=== PATIENT | female | born 1980 | race Caucasian/White ===

== ENCOUNTER 2017-03-04 17:12 | Emergency (ER) | payer OTHER ==
[2017-03-04 17:17] VITALS: BP 129/86; PULSE 101; RESP 20; TEMP 98.1
--- NOTE | 2017-03-04 17:52 | ED ---
Female Urogenital HPI - General Chief complaint: Urogenital Stated complaint: Vaginal problems Time Seen by Provider: 03/04/17 17:32 Source: patient, RN notes reviewed Mode of arrival: ambulatory Limitations: no limitations - History of Present Illness Initial comments: 37-year-old female presents to the emergency department with a chief complaint of boil to the vaginal area. Patient states it started about 2 days ago. Patient denies any drainage or discharge from the area. Patient denies any history of this. Patient denies any changes in personal care. Patient states she was concerned due to the pain and swelling so she thought that she should be evaluated.Patient denies any recent fever, chills, shortness of breath, chest pain, back pain, abdominal pain, nausea vomiting, numbness or tingling, dysuria or hematuria, constipation or diarrhea, headaches or visual changes, or any other current symptoms. - Related Data Home Medications Medication Instructions Recorded Confirmed Cyclobenzaprine [Flexeril] 10 mg PO HS 09/07/16 09/07/16 SUMAtriptan SUCCINATE [Imitrex] 100 mg PO DAILY PRN 09/07/16 09/07/16 Topiramate [Trokendi Xr] 100 mg PO DAILY 09/07/16 09/07/16 Previous Rx's Medication Instructions Recorded Sulfamethox-Tmp 800-160Mg [Bactrim 2 each PO Q12HR #56 tab 03/04/17 DS 800-160 mg] Allergies Allergy/AdvReac Type Severity Reaction Status Date / Time No Known Allergies Allergy Verified 03/04/17 17:17 Review of Systems ROS Statement: Those systems with pertinent positive or pertinent negative responses have been documented in the HPI. ROS Other: All systems not noted in ROS Statement are negative. Past Medical History Additional Past Medical History / Comment(s): migraines History of Any Multi-Drug Resistant Organisms: None Reported Past Surgical History: Back Surgery Additional Past Surgical History / Comment(s): fusion l4 l5 Past Anesthesia/Blood Transfusion Reactions: No Reported Reaction Past Psychological History: No Psychological Hx Reported Smoking Status: Never smoker Past Alcohol Use History: None Reported Past Drug Use History: None Reported General Exam Limitations: no limitations General appearance: alert, in no apparent distress Neck exam: Present: normal inspection. Absent: tenderness, meningismus, lymphadenopathy Respiratory exam: Present: normal lung sounds bilaterally. Absent: respiratory distress, wheezes, rales, rhonchi, stridor Cardiovascular Exam: Present: regular rate, normal rhythm, normal heart sounds. Absent: systolic murmur, diastolic murmur, rubs, gallop, clicks External exam: Present: erythema, swelling, lesions (To the right labia what appears to be an abscess) Extremities exam: Present: normal inspection, full ROM, normal capillary refill. Absent: tenderness, pedal edema, joint swelling, calf tenderness Neurological exam: Present: alert, oriented X3 Skin exam: Present: warm, dry, intact, normal color. Absent: rash Course Vital Signs 03/04/17 17:14 Temperature 98.1 F Pulse Rate 101 H Respiratory 20 Rate Blood Pressure 129/86 O2 Sat by Pulse 100 Oximetry Procedures - Procedures Initial comment: Procedure: Incision and drainage The skin overlying the abscess was prepped with Betadine, and anesthetized with 1% lidocaine without epinephrine. A #11 scalpel was then used to incise the abscess. Some purulent material was then extracted from the lesion. Gauze dressing placed on top, The patient tolerated the procedure well. Medical Decision Making - Medical Decision Making 29-year-old male presents for what appears to be a labial abscess. At this time we discussed care we discussed was on antibiotics. We discussed return parameters and follow-up. We discussed outpatient family's questions. He see the understanding and agreed with plan. All questions have been answered. They will be discharged. Disposition Clinical Impression: Abscess of right genital labia Disposition: HOME SELF-CARE Condition: Stable Instructions: Abscess (ED) Additional Instructions: Please use medication as discussed. Please follow up with family doctor if symptoms have not improved over the next two days. Please return to the emergency room if your symptoms increase or worsen or for any other concerns. Prescriptions: Sulfamethox-Tmp 800-160Mg [Bactrim DS 800-160 mg] 2 each PO Q12HR #56 tab Referrals: Richard Trujillo MD [Primary Care Provider] - 1-2 days Time of Disposition: 17:51
== END 2017-03-04 17:56 | disposition home or self-care (01) ==
LOC: EC 17:12
DX: N76.4 Abscess of vulva (principal); Z79.899 Other long term (current) drug therapy; Z86.69 Personal history of other diseases of the nervous system and sense organs
CPT/HCPCS: 56405; 99282

== ENCOUNTER 2017-09-20 07:30 | Day surgery (SDC) | payer OTHER ==
[2017-09-13 11:07] VITALS: BMI 41.5
--- NOTE | 2017-09-14 15:52 | HP ---
HISTORY AND PHYSICAL DATE OF PROCEDURE: 09/20/2016. HISTORY: This is a 37-year-old 0 woman with a longstanding history of dysmenorrhea and dysfunctional uterine bleeding. She has failed medical management with oral contraceptive pills and Depo-Provera. She has therefore elected to undergo diagnostic hysteroscopy and NovaSure endometrial ablation. Endometrial biopsy shows benign pathology. ALLERGIES: None. MEDICATIONS: Depo-Provera 150 mg q.3 months, Imitrex p.r.n. PAST MEDICAL HISTORY: Dysmenorrhea, dysfunctional uterine bleeding, obesity, migraine headaches, asthma. PAST SURGICAL HISTORY: L4-5 diskectomy and laminectomy in 1998. [employer] PAST HISTORY: She is a 0. No history of abnormal Pap smears or STDs. SOCIAL HISTORY: She is single, negative for tobacco, alcohol, and drug use. FAMILY HISTORY: Significant for mother with endometriosis. Father with hypercholesterolemia. REVIEW OF SYSTEMS: Negative for weight gain, weight loss, fevers, chills, nausea, vomiting, abdominal pain. Positive for painful periods, irregular vaginal bleeding, migraine headaches. PHYSICAL EXAM: Blood pressure 110/90, height 5 feet 7 inches, weight 248 pounds. In general, this is a pleasant, obese female in no obvious distress. HEENT exam is unremarkable with no palpable lymphadenopathy or thyromegaly. The abdomen is soft and nontender with no rebound, no guarding and no flank pain. Lungs are clear to auscultation bilaterally and heart is a regular rate and rhythm. On pelvic exam, she has normal female external genitalia without lesions or irritation. On speculum examination, the cervix appears grossly normal. Uterus is small, freely mobile and in the midline and there are no adnexal abnormalities appreciated. ASSESSMENT: This is a 37-year-old 0 woman with a history of dysmenorrhea and dysfunctional uterine bleeding who has failed medical management. She is scheduled to undergo diagnostic hysteroscopy with NovaSure endometrial ablation on 09/20/2017. This procedure, anticipated hospital course, and recovery have been reviewed with the patient in detail. Risks include, but are not limited to bleeding, transfusion, infection, uterine perforation with damage to internal structures, anesthesia complications. The patient understands these risks and agrees to proceed. MMODL / IJN: [id number] /
[~2017-09-20 07:30] MED LIST: DEXAMETHASONE SOD PHOSPHATE 10 MG/ML 1 ML VIAL IV ONE; HYDROmorphone 0.5 MG/0.5 ML SYRINGE IVP PRN; LACTATED RINGERS 1,000 ML IV ONE; LIDOCAINE 1% 20 ML VIAL (10MG/ML) FOR IV START INTRADERMA PRN; ONDANSETRON 4 MG/2 ML VIAL IVP ONE; Pre Op ABX Message 1 EACH MISC MISCELLANE ONE; SCOPOLAMINE 1.5MG/72HR PATCH TRANSDERM ONE
[2017-09-20] MEDS ORDERED: LIDOCAINE 1% 20 ML VIAL (10MG/ML) FOR IV START INTRADERMA ONE (08:05)
[2017-09-20] MEDS ORDERED: PROPOFOL 10 MG/ML 20 ML VIAL IV ONE (08:29)
[2017-09-20] MEDS ORDERED: SUCCINYLCHOLINE CHLORIDE VIAL 200 MG/10 ML VIAL IV ONE (08:29)
[2017-09-20] MEDS ORDERED: KETOROLAC 30 MG/ML 1 ML VIAL ONE (08:29)
[2017-09-20] MEDS ORDERED: LIDOCAINE 1% INJ 10MG/ML (20 ML MDV) ONE (08:29)
[2017-09-20] MEDS ORDERED: fentaNYL (PF) 50 MCG/ML 2 ML AMP ONE (08:29)
[2017-09-20] MEDS ORDERED: MIDAZOLAM 2 MG/2 ML VIAL ONE (08:29)
[2017-09-20] MEDS ORDERED: BUPIVACAINE-EPI 0.5%-1:200,000 10 ML VIAL SQ ONE (08:42)
--- NOTE | 2017-09-20 08:58 | P.OP ---
Date of Procedure: 09/20/17 Preoperative Diagnosis: Dysfunctional uterine bleeding Dysmenorrhea Postoperative Diagnosis: Same Procedure(s) Performed: Diagnostic hysteroscopy and NovaSure endometrial ablation Anesthesia: OLENA Surgeon: Zuleika Max Estimated Blood Loss (ml): 5 IV fluids (ml): 500 Urine output (ml): 50 Pathology: none sent Condition: stable Disposition: PACU Operative Findings: Enlarged uterus with fluffy endometrium Description of Procedure: After the patient was met in the preoperative holding area and all questions were answered, she was taken to the operating room where anesthetic was administered without incident. She was then positioned, prepped and draped in the dorsal lithotomy position. Bladder was drained for approximately 50 mL of clear urine. Single-sided speculum was placed in the vagina and the cervix was grasped anteriorly with a single-tooth tenaculum. Paracervical block with lidocaine plus epinephrine was placed. The uterus was sounded to 11.0 cm. The cervix was then sequentially dilated with Hegar dilators to allow for passage of the diagnostic hysteroscope. The hysteroscope was introduced and the above findings were noted. The hysteroscope was removed and the cervix was further dilated to allow for passage of the NovaSure ablation device. The ablation device was introduced with a cavity length of 6.0 cm and width of 3.5 cm. Cavity assessment test was passed and the device was enabled. Treatment cycle was 73 seconds with a power of 160 W. Following cessation of the treatment cycle the hysteroscope was reintroduced. Complete desiccation of the endometrium was appreciated. Hysteroscope was removed. All instruments removed from the cervix and hemostasis was noted. Vacuum was removed. The patient was awoken from anesthetic without incident and transported to recovery in stable condition. All counts reported to me as correct by the operating room staff.
[2017-09-20 09:16] VITALS: TEMP 97.4
[2017-09-20] MEDS ORDERED: MORPHINE SULFATE 4 MG/ML SYRINGE IVP ONE (09:37)
[2017-09-20 10:00] VITALS: RESP 16
[2017-09-20 10:22] VITALS: BP 110/63; PULSE 73
== END 2017-09-20 10:41 | disposition home or self-care (01) ==
LOC: OR 07:30
PROVIDERS: ATTEND Obstetrics & Gynecology
DX: N94.6 Dysmenorrhea, unspecified (principal); N93.8 Other specified abnormal uterine and vaginal bleeding; J45.909 Unspecified asthma, uncomplicated; E66.9 Obesity, unspecified; Z68.41 Body mass index [BMI] 40.0-44.9, adult; Z79.3 Long term (current) use of hormonal contraceptives; Z79.899 Other long term (current) drug therapy
CPT/HCPCS: 81025; 58563; J2250; J0330; J2270; J1100; J2405; J2001; J3010; J1885; J2704

== ENCOUNTER → 2024-05-19 | Outpatient (CLI) | payer BC ==
--- NOTE | 2024-05-19 09:56 | MM ---
Reason for Exam: Screening (asymptomatic). Last mammogram was performed 7 year(s) and 8 month(s) ago. Patient History: Menarche at age 11. Patient has no children. Risk Values: Parvin 5 year model risk: 0.9%. NCI Lifetime model risk: 10.6%. Prior Study Comparison: 08/28/2016 Bilateral Diagnostic Mammogram, [facility]. 09/02/2016 Right Diagnostic Mammogram, [facility]. Tissue Density: There are scattered areas of fibroglandular density. Findings: Analyzed By CAD. There is no suspicious group of microcalcifications or new suspicious mass in either breast. Overall Assessment: Benign, BI-RAD 2 Management: Screening Mammogram of both breasts in 1 year. . Patient should continue monthly self-breast exams. A clinical breast exam by your physician is recommended on an annual basis. This exam should not preclude additional follow-up of suspicious palpable abnormalities. Note on Parvin scores and lifetime risk: 1. A Parvin score greater than 3% is considered moderate risk. If this is the case, consider specialist referral to assess eligibility for a risk reducing agent. 2. If overall lifetime risk for the development of breast cancer is 20% or higher, the patient may qualify for future screening with alternating mammogram and breast MRI. Electronically signed and approved by: Wyatt Gregory M.D. Radiologis
== END | disposition home or self-care (01) ==
LOC: RADMAMWWP 07:10
PROVIDERS: ATTEND Family Medicine
DX: Z12.31 Encounter for screening mammogram for malignant neoplasm of breast (principal); R92.323 Mammographic fibroglandular density, bilateral breasts
CPT/HCPCS: 77063; 77067

== ENCOUNTER → 2024-05-31 | Outpatient (CLI) | payer BC ==
--- NOTE | 2024-07-12 10:44 | CA ---
Transthoracic Echo Report Name: Jennifer Covarrubias Age: 44 Gender: F : 1980 Exam Date: 05/31/2024 17:58 Exam Location: [place] [facility] Ht (in): 65 Wt (lb): 290 Ordering Physician: Richard Trujillo MD Attending/Referring Phys: Kimberly Serrato [facility] Food Order Delivery Runner Roxi Ziegler RDCS Procedure CPT: Indications: Chest Pain Cardiac Hx: Technical Quality: Fair Contrast 1: Total Dose (mL): Contrast 2: Total Dose (mL): MEASUREMENTS (Male / Female) Normal Values 2D ECHO LV Diastolic Diameter PLAX 5.5 cm 4.2 - 5.9 / 3.9 - 5.3 cm LV Systolic Diameter PLAX 3.8 cm IVS Diastolic Thickness 1.0 cm 0.6 - 1.0 / 0.6 - 0.9 cm LVPW Diastolic Thickness 1.2 cm 0.6 - 1.0 / 0.6 - 0.9 cm LV Relative Wall Thickness 0.4 LVOT Diameter 2.3 cm LA Volume 65.5 cm??? 18 - 58 / 22 - 52 cm??? LA Volume Index 25.8 cm???/m??? 16 - 28 cm???/m??? Ascending Aorta Diameter 3.7 cm DOPPLER AV Peak Velocity 121.5 cm/s AV Peak Gradient 5.9 mmHg AV Mean Velocity 83.1 cm/s AV Mean Gradient 3.1 mmHg AV Velocity Time Integral 22.6 cm LVOT Peak Velocity 98.5 cm/s LVOT Peak Gradient 3.9 mmHg LVOT Velocity Time Integral 19.9 cm LVOT Stroke Volume 81.4 cm??? LVOT Stroke Volume Index 35.1 ml/m??? LVOT Cardiac Index 2602.7 cm???/min???m??? AV Area Cont Eq vti 3.6 cm??? AV Area Cont Eq pk 3.3 cm??? MV Area PHT 4.9 cm??? Mitral E Point Velocity 49.2 cm/s Mitral A Point Velocity 60.2 cm/s Mitral E to A Ratio 0.8 MV Deceleration Time 154.1 ms PV Peak Velocity 95.4 cm/s PV Peak Gradient 3.6 mmHg FINDINGS Left Ventricle Left ventricular ejection fraction is estimated at 55-60 %. Mildly increased septal wall thickness. Mildly increased posterior wall thickness. Mildly increased left ventricular diastolic diameter. No obvious regional wall motion abnormalities. Right Ventricle Normal right ventricular size and function. Unable to estimate the right ventricular systolic pressure. Right Atrium Normal right atrial size. Left Atrium Moderately increased left atrial volume. Mildly increased left atrial area. Mitral Valve Structurally normal mitral valve. No evidence for mitral valve prolapse. No mitral stenosis. No mitral regurgitation. Aortic Valve Aortic valve not well visualized. No aortic valve stenosis or regurgitation. Tricuspid Valve Structurally normal tricuspid valve. No tricuspid stenosis. No tricuspid regurgitation. Pulmonic Valve Structurally normal pulmonic valve. No pulmonic stenosis. No pulmonic regurgitation. Pericardium No pericardial effusion. Aorta Normal size aortic root and proximal ascending aorta. CONCLUSIONS Diagnosis: Patient on chemotherapy, evaluate for LV dysfunction related to chemotherapeutic agent, cardiomyopathy Preserved LV systolic function ejection fraction 55% Left atrial enlargement Previewed by: Dr. Chente Aldridge MD (Electronically Signed) Final Date: 12 July 2024 10:43
== END | disposition home or self-care (01) ==
LOC: RADECHMAIN 18:00
PROVIDERS: ATTEND Family Medicine
DX: I51.7 Cardiomegaly (principal); I10 Essential (primary) hypertension; R94.31 Abnormal electrocardiogram [ECG] [EKG]
CPT/HCPCS: 93306

== ENCOUNTER → 2024-06-27 | Outpatient (CLI) | payer BC ==
--- NOTE | 2024-06-29 10:42 | CA ---
Stress Echo Report Jennifer Covarrubias Age: 44 Gender: F : 1980 Exam Date: 06/27/2024 10:31 Exam Location: [place] [facility] Ht (in): 65 Wt (lb): 300 Ordering Physician: Richard Trujillo MD Referring Physician: Haja Gold DO Machines Technician: MONSTER, Technologist Procedure CPT: Indication: R94.31 ABNORMAL EKG ICD-9 Codes: Rhythm: Patient History: Abnormal EKG and hypertension. Cardiac Medications: Medications in past 24 hours: Contrast: Definity Stress Results Protocol: Lico Total dose(mL): 2 Exercise Duration (min:sec): 7:[address] Depression (mm): Angina Score: Hernandez Score: METS: 8.5 Resting HR: 89 Resting BP: 161 / 93 Peak HR: 152 Peak BP: 178 / 57 Max Predicted HR: 175 87 % Max Predicted HR Target HR: 149 Double Product: [id number] Stress Summary: BP Response: Reason for Termination: MAX EXERTION/TARGET HR Cardiac Symptoms: DIFFICULTY IN BREATHING ECG Analysis Resting ECG: Stress ECG: Arrhythmia: Echo Analysis Resting Echo: Peak Echo Analysis: MEASUREMENTS (Male/Female) Normal Values CONCLUSIONS Baseline EKG revealed normal sinus rhythm with minor nonspecific ST abnormality. Patient walked on a standard Lico protocol for 7 minutes 4 seconds and achieved a maximal heart rate of 151 bpm which is more than 85% of predicted maximal. No anginal symptoms were reported patient had some shortness of breath and fatigue. No significant arrhythmia was noted. No ST segment changes were noted to indicate ischemia. This is a negative stress test with fair exercise capacity Baseline echo images revealed normal wall motion and wall thickening. Echo contrast was used to optimize image quality. At peak exercise there was good augmentation of left ventricular wall motion and wall thickening of all segments. There is no evidence to suggest any ischemia. Final impression: #1 negative stress test with fair exercise capacity by EKG criteria #2 normal stress echocardiogram without evidence of ischemia Dr. Felipe Rod MD (Electronically Signed) Final Date: 29 June 2024 10:41
== END | disposition home or self-care (01) ==
LOC: RADNMMAIN 09:54
PROVIDERS: ATTEND Family Medicine
DX: I10 Essential (primary) hypertension (principal); R94.31 Abnormal electrocardiogram [ECG] [EKG]
CPT/HCPCS: 93351